=== PATIENT | female | born 1950 | race Caucasian/White ===

== ENCOUNTER 2025-04-30 16:37 | Inpatient (IN) | payer MEDICARE, OTHER ==
[~2025-04-30] VITALS: Ht 165.1 cm; Wt 58.1 kg
[~2025-04-30 16:37] MED LIST: Aspirin PO; BYSTOLIC5 MG PO; FEOSOL325 MG PO; MELOXICAM15 MG PO; MELOXICAM7.5 MG PO; METOPROLOL TART50 MG PO; MONTELUKAST SOD10 MG PO; NORCO 7.5-3251 EACH PO; NORVASC5 MG PO; OMEPRAZOLE40 MG; TEKTURNA150 MG; ULTRAM 50MG50 MG PO; ULTRAM50 MG PO
[2025-04-30 17:45] VITALS: TEMP 97.8
[2025-04-30 18:26] LABS: BASOPHILS % 0.2 % (0.0-1.0); EOSINOPHILS % 0.4 % (0.0-6.0); LYMPHOCYTES % 12.5 % (18.0-39.1); MONOCYTES % 8.7 % (4.4-11.3); NEUTROPHILS % 77.7 % (38.7-80.0); RED CELL DISTRIBUTION WIDTH 14.5 % (11.7-14.4)
[2025-04-30] MEDS: ACETAMINOPHEN 325 MG TAB PO STA (18:49)
[2025-04-30 18:50] LABS: EST GLOMERULAR FILTRATION RATE 83.0 ML/MIN (>=60)
[2025-04-30] MEDS: SODIUM CHLORIDE 0.9% 1000ML 1,000 ML IV STA (18:50)
[2025-04-30] MEDS: DIGOXIN INJ 0.25 MG/ML 2 ML AMP IV STA (19:26)
[2025-04-30] MEDS: DILTIAZEM HCL 5 MG/ML 5 ML VIAL IV STA ×2 (19:27→23:07)
[2025-04-30] MEDS: METOPROLOL TARTRATE INJ 1 MG/ML VIAL IV STA ×2 (19:31→23:09)
[2025-04-30] MEDS ORDERED: POLYETHYLENE GLYCOL 3350 17 GM PACK PO PRN (20:45)
[2025-04-30] MEDS ORDERED: DILTIAZEM HCL VIAL 5 ML ONE (22:47)
[2025-04-30 23:15] VITALS: PULSE 124; RESP 18
[2025-05-01] VITALS (30 sets, daily range): BP systolic 123–193; BP diastolic 76–160; PULSE 118–145; RESP 13–26; TEMP 98–98.8; O2SAT 91–100
[2025-05-01] MEDS: SODIUM CHLORIDE 0.9% 1000ML 1,000 ML IV SCH (00:16)
[2025-05-01] MEDS: LABETALOL HCL 5 MG/ML 20ML VIAL IV PRN (06:05)
[2025-05-01 06:48] LABS: BASOPHILS % 0.2 % (0.0-1.0); EOSINOPHILS % 0.8 % (0.0-6.0); LYMPHOCYTES % 10.8 % (18.0-39.1); MONOCYTES % 6.6 % (4.4-11.3); NEUTROPHILS % 81.1 % (38.7-80.0); RED CELL DISTRIBUTION WIDTH 14.4 % (11.7-14.4)
[2025-05-01 07:26] LABS: CHOL/HDL RATIO 2.4 (3.0-3.6); EST GLOMERULAR FILTRATION RATE 92.0 ML/MIN (>=60); LDL CHOLESTEROL 87.0 MG/DL (60-130); PHOSPHORUS 2.8 MG/DL (2.3-4.7)
[2025-05-01] MEDS: FAMOTIDINE 20 MG TAB PO SCH (08:50)
[2025-05-01] MEDS: DOCUSATE SODIUM 100 MG CAP PO SCH (08:57)
[2025-05-01] MEDS: POTASSIUM CHLORIDE 10MEQ EA PO ONE (10:09)
[2025-05-01] MEDS ORDERED: AMLODIPINE BESY10 MG PO (11:30)
[2025-05-01] MEDS ORDERED: ROSUVASTATIN CAL5 MG PO (11:33)
[2025-05-01] MEDS ORDERED: ACETAMINOPHEN325 M1 PO (11:48)
[2025-05-01] MEDS: FERROUS SULFATE 325 MG TAB PO SCH (13:26)
[2025-05-01] MEDS: CRESTOR 10MG PO SCH (13:26)
[2025-05-01] MEDS: METOPROLOL TARTRATE 50 MG TAB PO SCH ×3 (13:27→22:00)
[2025-05-01] MEDS: ACETAMINOPHEN 325 MG TAB PO PRN (13:46)
[2025-05-01] MEDS ORDERED: TETANUS/DIPHTHERIA TOX ADULT 0.5 ML SYR IM ONE (16:30)
[2025-05-01] MEDS: AMLODIPINE BESYLATE 10 MG TAB PO SCH (16:53)
[2025-05-01] MEDS: ASCORBIC ACID 500 MG TAB PO SCH (16:54)
[2025-05-01] MEDS: Doxycycline IV 100 MG in SODIUM CHLORIDE 0.9% 100 ML IV SCH (17:14)
[2025-05-01] MEDS: ZINC SULFATE 50 MG CAP PO SCH (17:14)
[2025-05-01] MEDS: MAGNESIUM OXIDE 400 MG TAB PO SCH (17:15)
[2025-05-01] MEDS: CALCIUM CARBONATE/VITAMIN D3 500 MG TAB PO SCH (17:15)
[2025-05-01] MEDS: TETANUS/DIPHTHERIA TOX ADULT 0.5 ML SYR IM ONE (18:34)
[2025-05-02] VITALS (16 sets, daily range): BP systolic 109–198; BP diastolic 73–133; PULSE 68–130; RESP 17–28; TEMP 97.9–98.6; O2SAT 93–100
[2025-05-02] MEDS: POTASSIUM CHLORIDE 20 MEQ TAB CR PO STA (00:27)
[2025-05-02] MEDS: POTASSIUM CHLORIDE 20 MEQ TAB CR PO ONE ×2 (01:04)
[2025-05-02 07:17] LABS: BASOPHILS % 0.3 % (0.0-1.0); EOSINOPHILS % 0.8 % (0.0-6.0); LYMPHOCYTES % 12.2 % (18.0-39.1); MONOCYTES % 6.3 % (4.4-11.3); NEUTROPHILS % 79.8 % (38.7-80.0); RED CELL DISTRIBUTION WIDTH 14.2 % (11.7-14.4)
[2025-05-02 07:42] LABS: EST GLOMERULAR FILTRATION RATE 92.0 ML/MIN (>=60)
[2025-05-02] MEDS: MULTIVITAMINS/MINERALS TAB PO SCH (08:43)
[2025-05-02] MEDS: ENOXAPARIN SOD INJ 60 MG/0.6 ML SYR SC SCH (08:46)
[2025-05-02] MEDS ORDERED: AMLODIPINE BESYLATE 10 MG TAB PO SCH (09:00)
[2025-05-02 09:17] LABS: % IRON SATURATION 20.0 % (15-50)
[2025-05-02] MEDS: Doxycycline IV 100 MG in SODIUM CHLORIDE 0.9% 100 ML IV SCH (10:23)
[2025-05-02] MEDS: IRON SUCROSE 100 MG in SODIUM CHLORIDE 0.9% 100 ML IV SCH (12:13)
[2025-05-02] MEDS: DILTIAZEM HCL 30 MG TAB PO SCH (16:28)
[2025-05-03] VITALS (15 sets, daily range): BP systolic 108–182; BP diastolic 70–108; PULSE 70–130; RESP 16–25; TEMP 97.9–98.3; O2SAT 92–100
[2025-05-03 05:24] LABS: BASOPHILS % 0.4 % (0.0-1.0); EOSINOPHILS % 2.4 % (0.0-6.0); LYMPHOCYTES % 17.3 % (18.0-39.1); MONOCYTES % 8.3 % (4.4-11.3); NEUTROPHILS % 71.2 % (38.7-80.0); RED CELL DISTRIBUTION WIDTH 14.0 % (11.7-14.4)
[2025-05-03 06:05] LABS: EST GLOMERULAR FILTRATION RATE 95.0 ML/MIN (>=60)
[2025-05-03] MEDS: POTASSIUM CHLORIDE 20 MEQ TAB CR PO STA (11:15)
[2025-05-03] MEDS: DILTIAZEM HCL 30 MG TAB PO SCH (11:17)
[2025-05-03] MEDS: ONDANSETRON HCL INJ 2MG/ML 2ML 2 MG/ML VIAL IV PRN (12:33)
[2025-05-04] VITALS (14 sets, daily range): BP systolic 103–162; BP diastolic 52–95; PULSE 61–122; RESP 16–25; TEMP 98.2–98.6; O2SAT 93–99
[2025-05-04 05:18] LABS: BASOPHILS % 0.5 % (0.0-1.0); EOSINOPHILS % 0.9 % (0.0-6.0); LYMPHOCYTES % 19.7 % (18.0-39.1); MONOCYTES % 7.7 % (4.4-11.3); NEUTROPHILS % 70.3 % (38.7-80.0); RED CELL DISTRIBUTION WIDTH 13.9 % (11.7-14.4)
[2025-05-04 06:13] LABS: EST GLOMERULAR FILTRATION RATE 93.0 ML/MIN (>=60)
[2025-05-04] MEDS: AMIODARONE HCL 200 MG TAB PO SCH (11:08)
[2025-05-05] VITALS (22 sets, daily range): BP systolic 112–158; BP diastolic 65–122; PULSE 35–123; RESP 16–28; TEMP 97.5–99.1; O2SAT 88–99
[2025-05-05] MEDS: METOPROLOL TARTRATE 50 MG TAB PO SCH (11:51)
[2025-05-05] MEDS: AMIODARONE HCL 200 MG TAB PO SCH (16:36)
[2025-05-05] MEDS: METOPROLOL TARTRATE 25 MG TAB PO SCH (16:36)
[2025-05-06] VITALS (18 sets, daily range): BP systolic 126–163; BP diastolic 67–90; PULSE 106–117; RESP 9–23; TEMP 97.8–99; O2SAT 95–100
[2025-05-06] MEDS: METOPROLOL TARTRATE 50 MG TAB PO SCH (17:19)
[2025-05-06] MEDS: Vancomycin IV 1 GM in SODIUM CHLORIDE 0.9% 250ML 250 ML IV SCH (17:24)
[2025-05-07] VITALS (9 sets, daily range): BP systolic 124–162; BP diastolic 76–84; PULSE 79–114; RESP 17–23; TEMP 98–99.6; O2SAT 93–100
[2025-05-07 05:21] LABS: BASOPHILS % 0.4 % (0.0-1.0); EOSINOPHILS % 0.4 % (0.0-6.0); LYMPHOCYTES % 13.3 % (18.0-39.1); MONOCYTES % 6.9 % (4.4-11.3); NEUTROPHILS % 78.3 % (38.7-80.0); RED CELL DISTRIBUTION WIDTH 13.7 % (11.7-14.4)
[2025-05-07 05:53] LABS: EST GLOMERULAR FILTRATION RATE 95.0 ML/MIN (>=60)
[2025-05-07] MEDS: POTASSIUM CHLORIDE 20 MEQ TAB CR PO ONE (08:52)
[2025-05-07] MEDS: POTASSIUM CHLORIDE 10MEQ/100ML 100 ML IV SCH (08:54)
[2025-05-07] MEDS: APIXABAN 5 MG TABLET PO SCH (17:15)
[2025-05-07] MEDS: MUPIROCIN 2% OINT 22 GM TUBE TOP SCH (17:20)
[2025-05-07] MEDS: SODIUM CHLORIDE 0.9% 500ML 500 ML ONE (20:52)
[2025-05-08] VITALS (7 sets, daily range): BP systolic 117–154; BP diastolic 59–91; PULSE 82–112; RESP 17–22; TEMP 97–98.7; O2SAT 94–100
[2025-05-08 05:20] LABS: EST GLOMERULAR FILTRATION RATE 94.0 ML/MIN (>=60)
[2025-05-08] MEDS: POTASSIUM CHLORIDE 20 MEQ TAB CR PO ONE (17:32)
[2025-05-08] MEDS: METOPROLOL TARTRATE 50 MG TAB PO SCH (17:33)
[2025-05-09] VITALS (9 sets, daily range): BP systolic 126–157; BP diastolic 80–99; PULSE 76–108; RESP 18; TEMP 97.3–98.1; O2SAT 97–100
[2025-05-10] VITALS (7 sets, daily range): BP systolic 114–148; BP diastolic 65–92; PULSE 83–109; RESP 18–19; TEMP 97.1–98.1; O2SAT 96–99
[2025-05-10 06:44] LABS: BASOPHILS % 0.4 % (0.0-1.0); EOSINOPHILS % 1.7 % (0.0-6.0); LYMPHOCYTES % 17.2 % (18.0-39.1); MONOCYTES % 6.7 % (4.4-11.3); NEUTROPHILS % 73.4 % (38.7-80.0); RED CELL DISTRIBUTION WIDTH 14.4 % (11.7-14.4)
[2025-05-10 07:10] LABS: EST GLOMERULAR FILTRATION RATE 92.0 ML/MIN (>=60)
[2025-05-10] MEDS ORDERED: ONDANSETRON HCL 4 MG ORAL DISINTEGRATING TAB PO PRN (13:45)
[2025-05-11 08:06] VITALS: BP 141/83; PULSE 106; RESP 18; TEMP 98; O2SAT 98
[2025-05-11 08:49] VITALS: BP 141/83; PULSE 108; RESP 18; TEMP 98; O2SAT 98
[2025-05-11] MEDS: AMIODARONE HCL 200 MG TAB PO SCH (09:45)
[2025-05-11] MEDS: DIGOXIN 0.125 MG TAB PO SCH (10:25)
[2025-05-11 11:28] VITALS: BP 125/78; PULSE 72; RESP 18; TEMP 98; O2SAT 98
[2025-05-11] MEDS ORDERED: AMIODARONE HCL200 MG PO (15:31)
[2025-05-11] MEDS ORDERED: ELIQUIS5 MG PO (15:31)
[2025-05-11] MEDS ORDERED: METOPROLOL TART50 MG PO (15:35)
[2025-05-11] MEDS ORDERED: DIGOXIN125 MCG PO (15:35)
== END 2025-05-11 16:22 | disposition home or self-care (01) | DRG 872 ==
LOC: ER 17:43 → ERHOLD 18:51 → ICU 23:29 → MED/SURG 05-06 20:05
PROVIDERS: ADMIT Internal Medicine; ATTEND Internal Medicine
PROC: 3E0333Z Introduction of Anti-inflammatory into Peripheral Vein, Percutaneous Approach (ICD-10-PCS; 2025-04-30)
PROC: 02HV33Z Insertion of Infusion Device into Superior Vena Cava, Percutaneous Approach (ICD-10-PCS; principal; 2025-05-04)
DX: A41.9 Sepsis, unspecified organism (principal); I48.92 Unspecified atrial flutter; Q89.8 Other specified congenital malformations; L03.116 Cellulitis of left lower limb; Z66 Do not resuscitate; E87.6 Hypokalemia; D50.9 Iron deficiency anemia, unspecified; J44.9 Chronic obstructive pulmonary disease, unspecified; R53.81 Other malaise; E78.00 Pure hypercholesterolemia, unspecified; M19.90 Unspecified osteoarthritis, unspecified site; H54.8 Legal blindness, as defined in USA; H91.93 Unspecified hearing loss, bilateral; W55.01XA Bitten by cat, initial encounter; Z79.82 Long term (current) use of aspirin; Z79.01 Long term (current) use of anticoagulants; Z90.5 Acquired absence of kidney; Z85.528 Personal history of other malignant neoplasm of kidney; Z88.2 Allergy status to sulfonamides; Z88.5 Allergy status to narcotic agent; Z88.7 Allergy status to serum and vaccine
CPT/HCPCS: 36415; 36569; 71045; 80048; 80053; 80061; 80202; 82550; 82607; 82728; 82746; 83036; 83540; 83605; 83690; 83735; 83880; 84100; 84439; 84443; 84466; 84484; 85025; 85045; 87040; 87086; 90714; 93005; 93306; 94799; 99252; 99284; J0295; J0690; J1160; J1650; J1756; J2405; J2543; J3373; J3480; J7030; J7040; J7050